=== PATIENT | female | born 1990 | race Two or more races ===

== ENCOUNTER 2017-04-12 10:19 | Emergency (ER) | payer SELFPAY ==
[2017-04-12 10:27] VITALS: BP 116/72; PULSE 94; TEMP 98.1; BMI 29.0
[2017-04-12] MEDS ORDERED: OXYCODONE/APAP 5/325MG COMBO TABLET PO ONE (12:29)
[2017-04-12] MEDS ORDERED: OXYCODONE/APAP 5/325MG COMBO TABLET ONE (12:34)
--- NOTE | 2017-04-12 12:36 | PDOC ---
"History of Present Illness - General Chief Complaint: Toothache Stated Complaint: TOOTHACHE Time Seen by Provider: 04/12/17 11:44 History Source: Patient Exam Limitations: No Limitations - History of Present Illness Initial Comments: 04/12/17 12:32 Chief complaint severe toothache History of present illness: Patient is a 27-year-old female with a history of thyroid disorder here today complaining of worsening pain to her right upper posterior molar for 2 weeks. She reports that pain is a 10 out of 10 and radiates from her right upper posterior molar to her right ear and has been keeping her up for the last 3 nights. Patient saw a dentist 3 days ago was given ibuprofen however this does not take away the pain. Patient is supposed to have repair or have tooth removed. Patient does not have any facial swelling or any fever. Patient denies any chance of . Timing/Duration: getting worse Severity: severe (rt. upper posterior molar fractured) Associated Symptoms: reports: other (pain radiates to rt. ear) Past History - Past Medical History Allergies/Adverse Reactions: Allergies Allergy/AdvReac Type Severity Reaction Status Date / Time No Known Allergies Allergy Verified 04/12/17 10:24 Home Medications: Ambulatory Orders Oxycodone HCl/Acetaminophen [Percocet 5-325 mg Tablet] 1 tab PO Q8H PRN #14 tablet MDD 3 04/12/17 Thyroid Disease: Yes - Surgical History Abdominal Surgery: Yes Cholecystectomy: Yes - Immunization History Immunization Up to Date: Yes - Psycho/Social/Smoking Cessation Hx Anxiety: No Suicidal Ideation: No Smoking History: Never smoked Number of Cigarettes Smoked Daily: 0 Hx Alcohol Use: No Drug/Substance Use Hx: No Substance Use Type: None Review of Systems - Review of Systems Able to Perform ROS?: Yes Constitutional: No: Symptoms Reported HEENTM: Yes: Ear Pain (right ear cristian n), Dental Problems (rt. upper posterior molar fractured, with decay pain radiates to rt. ear ). No: Mouth Swelling Respiratory: No: Symptoms reported Cardiac (ROS): No: Symptoms Reported ABD/GI: No: Symptoms Reported Musculoskeletal: No: Symptoms Reported Integumentary: No: Symptoms Reported Neurological: No: Symptoms reported *Physical Exam - Vital Signs Last Vital Signs Temp Pulse Resp BP Pulse Ox 98.1 F 94 H 18 116/72 100 04/12/17 10:24 04/12/17 10:24 04/12/17 10:24 04/12/17 10:24 04/12/17 10:24 - Physical Exam General Appearance: Yes: Appropriately Dressed HEENT: positive: TMs Normal, Other (rt. upper posterior molar fractured with decay, no surrounding gum edema ). negative: Pharyngeal Erythema, Tonsillar Exudate, Tonsillar Erythema, Nasal Congestion, Rhinorrhea Neck: negative: Lymphadenopathy (R), Lymphadenopathy (L) Respiratory/Chest: positive: Lungs Clear, Normal Breath Sounds. negative: Chest Tender, Respiratory Distress Cardiovascular: positive: Regular Rhythm, Regular Rate, S1, S2 Integumentary: positive: Normal Color Neurologic: positive: Fully Oriented, Alert, Normal Response, Responsive Medical Decision Making - Medical Decision Making 04/12/17 12:33 Patient is a 27-year-old female with a history of thyroid disorder here today complaining of worsening pain to her right upper posterior molar for 2 weeks. She reports that pain is a 10 out of 10 and radiates from her right upper posterior molar to her right ear and has been keeping her up for the last 3 nights. Patient saw a dentist 3 days ago was given ibuprofen however this does not take away the pain. Patient is supposed to have repair or have tooth removed. Patient does not have any facial swelling or any fever. Patient denies any chance of . fractured, decayed rt. upper posterior molar toothache PLAN: perocet 5 mg/325 mg po now than every 8 hrs prn severe pain % # 14 Follow up with dentist at [facility] emergency dental clinic Search Terms: Rochelle Ruff, 1990 Search Date: 04/12/2017 12 :28:01 PM This report was requested by: Maria Fernanda Herrera | Reference #: [id number] There are no results for the search terms that you entered. 04/12/17 12:41 *DC/Admit/Observation/Transfer Diagnosis at time of Disposition: Toothache Fracture, tooth Qualifiers: Encounter type: initial encounter Fracture type: closed Qualified Code(s): S02.5XXA - Fracture of tooth (traumatic), initial encounter for closed fracture - Discharge Dispostion Disposition: HOME Condition at time of disposition: Stable - Patient Instructions Additional Instructions: Follow up with dentist as [facility] see brochure given to you RETURN TO ER IF SYMPTOMS WORSEN EAT SOFT FOODS TOLERATED PATIENT VOICED UNDERSTANDING OF DISCHARGE INSTRUCTIONS AND ALL QUESTIONS WERE ANSWERED"
== END 2017-04-12 13:05 | disposition home or self-care (01) ==
LOC: JERFT 10:19
DX: K08.89 Other specified disorders of teeth and supporting structures (principal); K02.9 Dental caries, unspecified; S02.5XXA Fracture of tooth (traumatic), initial encounter for closed fracture; X58.XXXA Exposure to other specified factors, initial encounter
CPT/HCPCS: 99281-25

== ENCOUNTER 2018-09-28 17:08 | Emergency (ER) | payer SELFPAY ==
[2018-09-28 17:22] VITALS: BP 136/82; PULSE 92; TEMP 98.3; BMI 30.2
[2018-09-28] MEDS ORDERED: KETOROLAC TROMETHAMINE 60 MG/2 ML VIAL ONE (17:55)
[2018-09-28] MEDS ORDERED: CYCLOBENZAPRINE HCL 10 MG TABLET (FP) ONE (17:55)
--- NOTE | 2018-09-28 17:59 | PDOC ---
History of Present Illness - General Chief Complaint: Back Pain Stated Complaint: BACK PAIN Time Seen by Provider: 09/28/18 17:25 History Source: Patient - History of Present Illness Occurred: reports: this afternoon Pain Location: reports: back Past History - Past Medical History Allergies/Adverse Reactions: Allergies Allergy/AdvReac Type Severity Reaction Status Date / Time No Known Allergies Allergy Verified 09/28/18 17:20 Home Medications: Ambulatory Orders Cyclobenzaprine HCl [Flexeril 10 mg] 10 mg PO TID PRN #9 tablet 09/28/18 Ibuprofen [Motrin -] 800 mg PO Q6H #30 tablet 09/28/18 COPD: No Thyroid Disease: Yes - Surgical History Abdominal Surgery: Yes Cholecystectomy: Yes - Immunization History Immunization Up to Date: Yes - Suicide/Smoking/Psychosocial Hx Smoking History: Never smoked Number of Cigarettes Smoked Daily: 0 Hx Alcohol Use: Yes Drug/Substance Use Hx: No Substance Use Type: None Review of Systems - Review of Systems Constitutional: No: Chills, Fever Musculoskeletal: Yes: Back Pain Neurological: No: Numbness, Tingling, Weakness *Physical Exam - Vital Signs Last Vital Signs Temp Pulse Resp BP Pulse Ox 98.3 F 92 H 22 H 136/82 98 09/28/18 17:20 09/28/18 17:20 09/28/18 17:20 09/28/18 17:20 09/28/18 17:20 - Physical Exam General Appearance: Yes: Appropriately Dressed, Moderate Distress HEENT: positive: Normal Voice Neck: positive: Supple Respiratory/Chest: negative: Respiratory Distress Gastrointestinal/Abdominal: positive: Soft. negative: Tender Musculoskeletal: positive: Vertebral Tenderness (to mid low back). negative: CVA Tenderness Integumentary: positive: Dry, Warm Neurologic: positive: Fully Oriented, Alert, Normal Mood/Affect Medical Decision Making - Medical Decision Making 09/28/18 18:02 28 yo F, h/o recurrent LBP, here w/ severe mid lower back pain that started suddenly today while bending to pick something up several hrs ago. No LE pain, weakness, saddle anesthesia or B/B incontinence See exam LBP in the setting of bending Recurrent No red flags at this time -pain control, reassess 09/28/18 18:34 Pt improved w/ meds. Will dc w/ pain control and pmd f/u as needed *DC/Admit/Observation/Transfer Diagnosis at time of Disposition: Lower back pain Qualifiers: Chronicity: acute Back pain laterality: bilateral Sciatica presence: without sciatica Qualified Code(s): M54.5 - Low back pain - Discharge Dispostion Disposition: HOME Condition at time of disposition: Improved - Prescriptions Prescriptions: Cyclobenzaprine HCl [Flexeril 10 mg] 10 mg PO TID PRN #9 tablet PRN Reason: Back Pain Ibuprofen [Motrin -] 800 mg PO Q6H #30 tablet - Referrals - Patient Instructions Printed Discharge Instructions: DI for Low Back Pain Additional Instructions: Take medications as directed and follow up with your PMD if pain persists - Post Discharge Activity
[2018-09-28] MEDS ORDERED: KETOROLAC TROMETHAMINE 60 MG/2 ML VIAL IM ONE (18:00)
[2018-09-28] MEDS ORDERED: CYCLOBENZAPRINE HCL 10 MG TABLET (FP) PO ONE (18:00)
== END 2018-09-28 18:50 | disposition home or self-care (01) ==
LOC: JERFT 17:08
PROC: 3E0233Z Introduction of Anti-inflammatory into Muscle, Percutaneous Approach (ICD-10-PCS; principal; 2018-09-28)
DX: M54.5 Low back pain (principal); X50.1XXA Overexertion from prolonged static or awkward postures, initial encounter; Y93.89 Activity, other specified; Y92.89 Other specified places as the place of occurrence of the external cause; Y99.8 Other external cause status
CPT/HCPCS: 99281-25

== ENCOUNTER 2019-04-14 01:55 | Emergency (ER) | payer SELFPAY ==
[2019-04-14 02:15] VITALS: BP 125/85; PULSE 93; TEMP 98.1; BMI 33.0
[2019-04-14] MEDS ORDERED: TETANUS AND DIPHTHERIA TOXOID 0.5 ML DISP.SYRIN IM ONE (02:21)
--- NOTE | 2019-04-14 02:27 | PDOC ---
History of Present Illness - General Chief Complaint: Laceration Stated Complaint: LACERATION Time Seen by Provider: 04/14/19 02:08 - History of Present Illness Initial Comments: 04/14/19 02:20 29 year old female with right index finger laceration reports that she was usinga knife to open to the door and knife slipped and cut finger. ;ast tetanus unknown Past History - Past Medical History Allergies/Adverse Reactions: Allergies Allergy/AdvReac Type Severity Reaction Status Date / Time No Known Allergies Allergy Verified 04/14/19 02:13 Home Medications: Ambulatory Orders Cyclobenzaprine HCl [Flexeril 10 mg] 10 mg PO TID PRN #9 tablet 09/28/18 Ibuprofen [Motrin -] 800 mg PO Q6H #30 tablet 09/28/18 COPD: No Thyroid Disease: Yes - Surgical History Abdominal Surgery: Yes Cholecystectomy: Yes - Immunization History Immunization Up to Date: Yes - Suicide/Smoking/Psychosocial Hx Smoking History: Never smoked Number of Cigarettes Smoked Daily: 0 Hx Alcohol Use: Yes Drug/Substance Use Hx: No Substance Use Type: None Review of Systems - Review of Systems Able to Perform ROS?: Yes Is the patient limited Mongolian proficient: No Integumentary: Yes: Other (laceration) *Physical Exam - Vital Signs Last Vital Signs Temp Pulse Resp BP Pulse Ox 98.1 F 93 H 18 125/85 100 04/14/19 02:14 04/14/19 02:14 04/14/19 02:14 04/14/19 02:14 04/14/19 02:14 - Physical Exam General Appearance: Yes: Appropriately Dressed Integumentary: positive: Other ().5 cm lacerationt to the right index finger proximal to the nail bed) Neurologic: positive: Fully Oriented, Alert Procedures - Consent Consent obtained: Verbal - Laceration/Wound Repair Right Finger Wound Length: to 2.5 cm (0.5cm) Wound Explored: clean Wound's Depth, Shape: linear Irrigated w/ Saline: Yes Betadine Prep: Yes Wound Repaired With: Dermabond Sterile Dressing Applied: No Splint Applied: No Progress: 04/14/19 02:58 dermabond well aproximated the laceration *DC/Admit/Observation/Transfer Diagnosis at time of Disposition: Laceration of index finger Qualifiers: Encounter type: initial encounter Damage to nail status: without damage Foreign body presence: without foreign body Laterality: right Qualified Code(s) : S61.210A - Laceration without foreign body of right index finger without damage to nail, initial encounter - Discharge Dispostion Disposition: HOME - Referrals - Patient Instructions Printed Discharge Instructions: DI for Laceration Repair With Dermabond Additional Instructions: do not get wound wet Follow-up with your doctor in 2 days for a wound check Additional Instructions: * Please call your personal physician to report your Emergency Department visit and to report your progress, if any. * If there is no improvement in symptoms in 2 days call your physician. * Return to the Emergency Department for any worsening symptoms. - Post Discharge Activity Forms/Work/School Notes: Back to Work
[2019-04-14] MEDS ORDERED: DIPHTH,PERTUSS(ACELL),TET 0.5 ML DISP.SYRIN IM ONE ×2 (02:30→02:34)
== END 2019-04-14 03:19 | disposition home or self-care (01) ==
LOC: JER 01:55
PROC: 0HQFXZZ Repair Right Hand Skin, External Approach (ICD-10-PCS; principal; 2019-04-14)
PROC: 3E0234Z Introduction of Serum, Toxoid and Vaccine into Muscle, Percutaneous Approach (ICD-10-PCS; 2019-04-14)
DX: S61.210A Laceration without foreign body of right index finger without damage to nail, initial encounter (principal); W26.0XXA Contact with knife, initial encounter; Y93.89 Activity, other specified; Y92.038 Other place in apartment as the place of occurrence of the external cause; Y99.8 Other external cause status
CPT/HCPCS: 90715; 99281-25

== ENCOUNTER 2023-04-02 17:56 | Emergency (ER) | payer OTHER ==
[2023-04-02 18:05] VITALS: BP 143/96; PULSE 105; RESP 18; TEMP 98.2; BMI 31.4
[2023-04-02] MEDS ORDERED: guaiFENesin 200 MG/10 ML 10 ML UNIT-DOSE CUPS PO ONE (19:20)
[2023-04-02] MEDS ORDERED: guaiFENesin/D-METHORPHAN HB 10 ML UNIT-DOSE CUPS ONE (19:27)
== END 2023-04-02 20:21 | disposition home or self-care (01) ==
LOC: JERFT 17:56 → JER 17:56 → JERFT 20:21
DX: J10.1 Influenza due to other identified influenza virus with other respiratory manifestations (principal); R05.1 Acute cough; R09.81 Nasal congestion; J02.9 Acute pharyngitis, unspecified; Z20.822 Contact with and (suspected) exposure to COVID-19
CPT/HCPCS: 0241U-QW; 87651; 99283-25

== ENCOUNTER 2023-11-28 10:31 | Emergency (ER) | payer OTHER ==
[2023-11-28 10:37] VITALS: RESP 18; BMI 34.0
[2023-11-28] MEDS ORDERED: LACTATED RINGERS SOLUTION 1,000 ML/1,000 ML INFUS.BAG IV STA ×2 (11:40→13:25)
[2023-11-28] MEDS ORDERED: ONDANSETRON 4 MG/2 ML VIAL IVPUSH ONE ×2 (11:42→20:00)
[2023-11-28] MEDS ORDERED: FAMOTIDINE 20 MG/50 ML IVPB 20 MG/50 ML MG IVPB ONE ×2 (11:42→11:47)
[2023-11-28] MEDS ORDERED: ACETAMINOPHEN 1000 MG/100 ML BAG IVPB ONE (11:42)
[2023-11-28] MEDS ORDERED: ONDANSETRON 4 MG/2 ML VIAL ONE ×2 (11:47→20:01)
[2023-11-28] MEDS ORDERED: ACETAMINOPHEN INJECTION 100 ML IVPB ONE (11:47)
[2023-11-28 13:01] LABS: BASO % 0.2 % (0-2.0); EOS % 0.7 % (0-4.5); HEMATOCRIT 42.6 % (32.4-45.2); HEMOGLOBIN 14.7 GM/dL (10.7-15.3); LYMPH % 12.2 % (8-40); MCH 30.2 pg (25.7-33.7); MCHC 34.4 g/dl (32.0-36.0); MEAN CELL VOLUME 87.7 fl (80-96); MEAN PLT VOLUME 8.4 fl (7.5-11.1); MONO % 3.7 % (3.8-10.2); NEUT % 83.2 % (42.8-82.8); PLATELET COUNT 338 10^3/uL (134-434); RBC 4.86 M/mm3 (3.60-5.2); RDW 13.6 % (11.6-15.6); WHITE BLOOD COUNT 11.5 K/mm3 (4.0-10.0)
[2023-11-28 13:11] LABS: CALCIUM 8.9 mg/dL (8.5-10.1)
[2023-11-28 13:12] LABS: ALBUMIN 3.4 g/dl (3.4-5.0); BLOOD UREA NITROGEN 15.9 mg/dL (7-18)
[2023-11-28 13:14] LABS: CREATININE 0.8 mg/dL (0.55-1.3)
[2023-11-28 13:16] LABS: BILIRUBIN,TOTAL 0.7 mg/dL (0.2-1); TOT PROT 8.3 g/dl (6.4-8.2)
[2023-11-28 13:28] LABS: PH,URINE 5.5 (5.0-8.0); URINE APPEARANCE CLEAR; URINE BILIRUBIN NEGATIVE (NEGATIVE); URINE COLOR YELLOW; URINE GLUCOSE (UA) NEGATIVE (NEGATIVE); URINE KETONE NEGATIVE (NEGATIVE); URINE LEUK ESTERASE NEGATIVE (NEGATIVE); URINE NITRITE NEGATIVE (NEGATIVE); URINE PROTEIN NEGATIVE (NEGATIVE); URINE UROBILINOGEN 0.2 mg/dL (0.2-1.0)
[2023-11-28 15:58] VITALS: BP 117/76; PULSE 95; TEMP 98.7
[2023-11-28] MEDS ORDERED: DICYCLOMINE HCL 20 MG TABLET PO ONE (17:38)
[2023-11-28] MEDS ORDERED: SODIUM CHLORIDE 1,000 ML IV STA (17:38)
[2023-11-28] MEDS ORDERED: DICYCLOMINE HCL 10 MG CAPSULE ONE (18:33)
== END 2023-11-28 20:33 | disposition home or self-care (01) ==
LOC: JER 10:31
PROC: 3E033GC Introduction of Other Therapeutic Substance into Peripheral Vein, Percutaneous Approach (ICD-10-PCS; principal; 2023-11-28)
PROC: 3E033GC Introduction of Other Therapeutic Substance into Peripheral Vein, Percutaneous Approach (ICD-10-PCS; 2023-11-28)
PROC: 3E033NZ Introduction of Analgesics, Hypnotics, Sedatives into Peripheral Vein, Percutaneous Approach (ICD-10-PCS; 2023-11-28)
PROC: 3E0337Z Introduction of Electrolytic and Water Balance Substance into Peripheral Vein, Percutaneous Approach (ICD-10-PCS; 2023-11-28)
PROC: 3E0337Z Introduction of Electrolytic and Water Balance Substance into Peripheral Vein, Percutaneous Approach (ICD-10-PCS; 2023-11-28)
DX: A08.4 Viral intestinal infection, unspecified (principal); R11.2 Nausea with vomiting, unspecified; R19.7 Diarrhea, unspecified; M79.10 Myalgia, unspecified site; Z20.822 Contact with and (suspected) exposure to COVID-19
CPT/HCPCS: 0241U-QW; 36415; 74177-TC; 76705-TC; 80053; 81003; 84132; 84703; 85025; 99285-25; Q9967

== ENCOUNTER 2023-12-07 08:57 | Emergency (ER) | payer OTHER ==
[2023-12-07 09:08] VITALS: BP 142/85; PULSE 104; RESP 20; TEMP 98.7; BMI 34.9
[2023-12-07] MEDS ORDERED: SODIUM CHLORIDE 0.9% 500 ML INFUS.BAG IV ONE (09:27)
[2023-12-07] MEDS ORDERED: DEXAMETHASONE SOD PHOSPHATE 10 MG/1 ML VIAL IVPUSH ONE (09:27)
[2023-12-07] MEDS ORDERED: DEXAMETHASONE SOD PHOSPHATE 10 MG/1 ML VIAL ONE (09:30)
[2023-12-07] MEDS ORDERED: FAMOTIDINE 20 MG/50 ML IVPB 20 MG/50 ML MG IVPB ONE ×2 (09:31→10:17)
[2023-12-07 10:09] LABS: BASO % 0.6 % (0-2.0); EOS % 1.1 % (0-4.5); HEMATOCRIT 40.6 % (32.4-45.2); HEMOGLOBIN 13.8 GM/dL (10.7-15.3); LYMPH % 28.9 % (8-40); MCH 30.4 pg (25.7-33.7); MEAN CELL VOLUME 89.4 fl (80-96); MEAN PLT VOLUME 7.9 fl (7.5-11.1); MONO % 4.9 % (3.8-10.2); NEUT % 64.5 % (42.8-82.8); PLATELET COUNT 349 10^3/uL (134-434); RBC 4.55 M/mm3 (3.60-5.2); RDW 13.2 % (11.6-15.6); WHITE BLOOD COUNT 11.1 K/mm3 (4.0-10.0)
[2023-12-07 10:29] LABS: CHLORIDE 104 mmol/L (98-107); POTASSIUM 4.3 mmol/L (3.5-5.1); SODIUM 135 mmol/L (136-145)
[2023-12-07 10:32] LABS: ALBUMIN 3.4 g/dl (3.4-5.0); ANION GAP 7 mmol/L (4-13); BLOOD UREA NITROGEN 13.4 mg/dL (7-18); CALCIUM 8.9 mg/dL (8.5-10.1); CO2 25 mmol/L (21-32); GLUCOSE,RANDOM 134 mg/dL (74-106)
[2023-12-07 10:35] LABS: CREATININE 0.7 mg/dL (0.55-1.3); SGOT/AST 37 U/L (15-37); SGPT/ALT 72 U/L (13-61)
[2023-12-07 10:36] LABS: TOT PROT 7.7 g/dl (6.4-8.2)
[2023-12-07 10:38] LABS: ALK PHOS 106 U/L (45-117); BILIRUBIN,TOTAL 0.4 mg/dL (0.2-1)
== END 2023-12-07 15:00 | disposition home or self-care (01) ==
LOC: JER 08:57
PROC: 3E033GC Introduction of Other Therapeutic Substance into Peripheral Vein, Percutaneous Approach (ICD-10-PCS; principal; 2023-12-07)
PROC: 3E033GC Introduction of Other Therapeutic Substance into Peripheral Vein, Percutaneous Approach (ICD-10-PCS; 2023-12-07)
PROC: 3E033GC Introduction of Other Therapeutic Substance into Peripheral Vein, Percutaneous Approach (ICD-10-PCS; 2023-12-07)
DX: R22.0 Localized swelling, mass and lump, head (principal); R21 Rash and other nonspecific skin eruption; R20.2 Paresthesia of skin; T78.40XA Allergy, unspecified, initial encounter
CPT/HCPCS: 36415; 70491-TC; 80053; 84702; 85025; 85651; 86140; 87651; 99285-25; J1100; Q9967

== ENCOUNTER 2024-02-20 11:22 | Emergency (ER) | payer SELFPAY ==
[2024-02-20 11:25] VITALS: BP 131/87; PULSE 98; RESP 18; TEMP 98.3; BMI 36.8
[2024-02-20] MEDS ORDERED: IBUPROFEN 400 MG TABLET (FP) PO ONE (11:41)
[2024-02-20] MEDS: IBUPROFEN 400 MG TABLET (FP) PO ONE (11:44)
== END 2024-02-20 13:22 | disposition home or self-care (01) ==
LOC: JERFT 11:22
DX: S93.402A Sprain of unspecified ligament of left ankle, initial encounter (principal); S90.32XA Contusion of left foot, initial encounter; M25.572 Pain in left ankle and joints of left foot; X50.1XXA Overexertion from prolonged static or awkward postures, initial encounter; Y92.410 Unspecified street and highway as the place of occurrence of the external cause; Y93.01 Activity, walking, marching and hiking
CPT/HCPCS: 73610-TC-LT-FY; 99283-25

== ENCOUNTER 2025-03-27 14:11 | Emergency (ER) | payer OTHER ==
[2025-03-27 14:22] VITALS: BP 120/81; PULSE 102; RESP 20; TEMP 99.5; BMI 33.0
[2025-03-27] MEDS ORDERED: guaiFENesin/D-METHORPHAN HB 10 ML UNIT-DOSE CUPS ONE (15:06)
[2025-03-27] MEDS ORDERED: ACETAMINOPHEN 500 MG TABLET (FP) ONE (15:07)
[2025-03-27] MEDS: ACETAMINOPHEN 500 MG TABLET (FP) PO ONE (15:09)
[2025-03-27] MEDS: guaiFENesin/D-METHORPHAN HB 10 ML UNIT-DOSE CUPS PO ONE (15:09)
[2025-03-27 15:38] LABS: THROAT:GRP A STREP NOT DETECTED (NOTDETECTED)
== END 2025-03-27 15:40 | disposition home or self-care (01) ==
LOC: JERFT 14:11
DX: U07.1 COVID-19 (principal); R50.9 Fever, unspecified; J22 Unspecified acute lower respiratory infection; H66.92 Otitis media, unspecified, left ear; R05.9 Cough, unspecified; M79.10 Myalgia, unspecified site; H92.02 Otalgia, left ear; R00.0 Tachycardia, unspecified
CPT/HCPCS: 0241U-QW; 87651; 99283-25